=== PATIENT | male | born 1975 | race Caucasian/White ===

== ENCOUNTER → 2016-12-23 | Outpatient (CLI) | payer OTHER ==
--- NOTE | 2016-12-27 16:03 | MRI ---
MR right knee without contrast Indication: Right knee pain with flexion. Technique: Multiplanar multi sequence imaging through the right knee without contrast. Comparison: None available. Findings: Bone marrow signal is normal. Neurovascular structures are normal. The ACL and PCL are int act. The lateral meniscus and medial meniscus are normal. Extensor mechanism is intact. There is tra ce physiologic joint fluid. Mild lateral tibial plateau chondromalacia with mild subchondral edema n oted. Small cartilage fissuring or injury is possible. The lateral collateral ligamentous complex an d MCL are intact. No popliteal cyst seen. There is fissuring over the median patellar ridge and medi al facet see axial images 11-13 with fraying of the cartilage. Full-thickness fissuring is noted wit h mild subchondral edema. Tibial tuberosity-trochlear groove distance is within normal limits. Impression: 1. 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 2. 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 3. Intact ligaments, tendons and menisci otherwise. Reported By:
== END ==
LOC: RAD 15:09
PROVIDERS: ATTEND Internal Medicine
DX: M25.561 Pain in right knee (principal); M94.261 Chondromalacia, right knee; R60.0 Localized edema
CPT/HCPCS: 73721

== ENCOUNTER → 2017-10-12 | Outpatient (CLI) | payer OTHER ==
--- NOTE | 2017-10-12 18:25 | RAD ---
Exam: Left hand three views History: Piece of metal stuck in hand at base of 3rd digit Comparison: None Findings: Three views of the left hand were obtained. A 3 mm radiopaque foreign body is identified in the soft tissues posterior to the head of the left 3rd metacarpal, near the metacarpophalangeal join t. No underlying acute bony abnormality is seen however. Impression: Radiopaque foreign body is identified in the soft tissues posterior to the head of the left 3rd metac arpal. Reported By:
== END | disposition home or self-care (01) ==
LOC: RAD 17:07
PROVIDERS: ATTEND Internal Medicine
DX: M79.642 Pain in left hand (principal); R93.7 Abnormal findings on diagnostic imaging of other parts of musculoskeletal system
CPT/HCPCS: 73130